=== PATIENT | female | born 1970 | race Hispanic/Latino ===

== ENCOUNTER 2019-08-28 22:21 | Emergency (ER) | payer MEDICARE, MEDICAID, SELFPAY ==
[2019-08-28 22:22] VITALS: BP 148/102; PULSE 82; RESP 16; TEMP 36.2; O2SAT 99; BMI 23.9
--- NOTE | 2019-08-28 22:39 | ED.VISSUMM ---
- ER Visit Summary Date of Service: 08/28/19 Chief Complaint: Headache with a history of migraines History of Present Illness: The patient is a 49 F history of migraines with chronic and frequent headaches. Also MS. Sees a neurologist and has had extensive imaging work-up. No history of intracranial bleed. No history of recent head trauma. No history of anticoagulation. Physical Examination: Middle-aged female vital signs stable afebrile. H EENT exam pupils round reactive light his motions are intact. No facial droop. No slurred speech. She does have photophobia. Neck nontender no meningismus. No lymphadenopathy. Lungs clear to auscultation bilaterally. Heart regular rhythm no murmur. Abdomen soft nontender normal bowel sounds no peritoneal signs. Extremities moves all 4. Calves nontender without edema or cords. Neurologically she is awake she is alert. She is answering questions and following commands. She has no focal motor deficits at this time. Test Results: None Emergency Department Course and Treatment: Patient treated with IV fluids, IV Toradol, IV Reglan and Benadryl. On repeat exam at 11:16 PM patient is feeling much improved. Her headache is resolving. Neurologically she is awake and alert with no focal motor deficits. Treatment Plan: Fluids and rest. Her home Imitrex and home Zofran as needed. Follow-up with her neurologist and/or PCP as needed. Return if worse. Disposition: Discharge Impression: Acute cephalgia with a history of migraines This note was generated with [employer] dictation software. It may contain incorrect words, spelling, and punctuation that were not noted in review of the chart prior to signing ED Disposition - Plan for ED Patient: Disposition: Home or Assisted Living Instructions: ED, Migraine (Classical) Referrals: [facility],Out of [NON-STAFF] - 3-5 Days if not improving Additional Instructions: Plenty of fluids and rest. Use your Imitrex and zofran as needed. Follow-up with your neurologist and/or your primary care physician as needed. Return if feeling worse.
[2019-08-28] MEDS: 0.9% Normal Saline 1,000 ML 999 ML IV (22:55)
[2019-08-28] MEDS: DiphenhydrAMINE 50 MG/ML Syringe 25 MG IV (22:56)
[2019-08-28] MEDS: Metoclopramide 10 MG/2 ML Vial 5 MG IV (22:57)
[2019-08-28] MEDS: Ketorolac 30 MG/ML Syringe IV (22:58)
[2019-08-29 00:31] VITALS: BP 130/82; PULSE 78; RESP 16; O2SAT 99
== END 2019-08-29 00:33 | disposition home or self-care (01) ==
LOC: ED 22:58
PROVIDERS: Emergency Provider Emergency Medicine
DX: G43.909 Migraine, unspecified, not intractable, without status migrainosus (principal); G35 Multiple sclerosis; Z72.0 Tobacco use
CPT/HCPCS: 96361; 96374; 96375; 99284; J7030; A4216